=== PATIENT | male | born 1980 | race Caucasian/White ===

== ENCOUNTER → 2018-05-30 | Outpatient (CLI) | payer MEDICAID ==
[~2018-05-30] MED LIST: MIDAZOLAM INJ 2 MG/2 ML VIAL (J2250) As Ordered; PROHANCE 279.3MG/ML 15ML VIAL (A9576) As Ordered; fentaNYL 100 MCG/2 ML INJECTION (J3010) As Ordered
== END ==
LOC: M SDC 12:15
DX: R55 Syncope and collapse (principal)
CPT/HCPCS: A9576